=== PATIENT | female | born 1985 | race Caucasian/White ===

== ENCOUNTER 2017-01-23 09:11 | Emergency (ER) | payer OTHER ==
[2017-01-23 10:02] VITALS: BP 135/95
[2017-01-23] MEDS ORDERED: MOTRIN PO ONE (11:56)
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
== END 2017-01-23 12:39 | disposition home or self-care (01) ==
LOC: ED 09:11
DX: S16.1XXA Strain of muscle, fascia and tendon at neck level, initial encounter (principal); M62.830 Muscle spasm of back; I10 Essential (primary) hypertension; V49.49XA Driver injured in collision with other motor vehicles in traffic accident, initial encounter; Y93.9 Activity, unspecified; Y92.9 Unspecified place or not applicable; Y99.9 Unspecified external cause status
CPT/HCPCS: 99282